=== PATIENT | female | born 1990 | race American Indian/Alaskan Native ===

== ENCOUNTER 2016-10-27 17:42 | Emergency (ER) | payer MEDICAID ==
[2016-10-27 17:52] VITALS: BP 129/84; PULSE 96; RESP 17; TEMP 98.8; O2SAT 98
--- NOTE | 2016-10-27 17:55 | ED PDOC ---
HPI: General Adult Time Seen by Provider: 10/27/16 17:55 Chief Complaint (Nursing): Female Genitourinary Chief Complaint (Provider): vaginal discomfort History Per: Patient Additional Complaint(s): 25-year-old female presents to emergency department for evaluation of vaginal discharge that started 3 days ago. Patient also noticed a possible abscess to right labia majora region 3 days ago. She states the abscess ruptured on its own and has been draining. Patient thinks there may be 2 abscesses to same area. Patient has pain to affected area but denies any fever or chills. Patient states she is currently sexually active with one partner and denies concern for STD. No associated nausea, vomiting, diarrhea or constipation, dysuria or hematuria. Past Medical History Reviewed: Historical Data, Nursing Documentation, Vital Signs Vital Signs: Last Vital Signs Temp 98.8 F 10/27/16 17:49 Pulse 96 H 10/27/16 17:49 Resp 17 10/27/16 17:49 BP 129/84 10/27/16 17:49 Pulse Ox 98 10/27/16 20:02 - Medical History PMH: No Chronic Diseases - Surgical History Surgical History: No Surg Hx - Family History Family History: States: No Known Family Hx - Living Arrangements Living Arrangements: With Family - Social History Current smoker - smoking cessation education provided: No Alcohol: None Drugs: Denies - Home Medications Home Medications: Ambulatory Orders Medication Instructions Recorded Fluconazole [Diflucan] 150 mg PO ONCE #1 tab 10/27/16 Metronidazole [Metrogel] 60 gm VAG HS #1 packet 10/27/16 Sulfamethoxazole/Trimethoprim 1 tab PO BID #20 tab 10/27/16 [Bactrim DS 800 mg-160 mg] - Allergies Allergies/Adverse Reactions: Allergies Allergy/AdvReac Type Severity Reaction Status Date / Time No Known Allergies Allergy Verified 10/27/16 17:48 Review of Systems ROS Statement: Except As Marked, All Systems Reviewed And Found Negative Constitutional: Negative for: Fever, Chills Gastrointestinal: Negative for: Nausea, Vomiting, Abdominal Pain Genitourinary Female: Positive for: Vaginal Discharge, Other (Possible abscess to external genitalia). Negative for: Dysuria, Frequency, Incontinence, Hematuria, Vaginal Bleeding Physical Exam - Reviewed Nursing Documentation Reviewed: Yes Vital Signs Reviewed: Yes - Physical Exam Appears: Positive for: Well, Non-toxic, No Acute Distress Skin: Negative for: Rash Eye Exam: Positive for: Normal appearance Cardiovascular/Chest: Positive for: Regular Rate, Rhythm Respiratory: Positive for: Normal Breath Sounds Gastrointestinal/Abdominal: Positive for: Soft. Negative for: Tenderness, Distended, Guarding, Rebound Pelvic Exam: Positive for: Other (superficial 2 cm abscess noted to the right groin region, additional superficial 2 cm abscess noted to the right external genitalia, abscesses or indurated with minimal fluctuance, no central pointing, minimal tenderness to palpation, slight surrounding swelling, there is copious amount of thick white discharge noted from closed cervical os, no CMT, no adnexal or uterine tenderness, no active bleeding or cervicitis) Back: Negative for: L CVA Tenderness, R CVA Tenderness Neurologic/Psych: Positive for: Alert, Oriented - Laboratory Results Urine POC: Negative Urine dip results: Positive for: Leukocyte Esterase (large). Negative for: Blood, Nitrate, Ketones, Glucose, Bilirubin, Protein - ECG O2 Sat by Pulse Oximetry: 98 Pulse Ox Interpretation: Normal Medical Decision Making Medical Decision Makin-year-old female with vaginal discomfort. Plan: Genital culture GC and chlamydia culture Urinalysis and urine culture Large leukocytes noted in urine, patient denies any dysuria or UTI symptoms, urine culture was sent. Prescription for Bactrim will be given secondary to abscess finding which will also cover UTI. Additional prescriptions for Diflucan and MetroGel given. Advised warm soaks with Epsom salts affected area. Patient was instructed to follow-up with sheet combining operator in 2-3 days. Disposition - Clinical Impression Clinical Impression: Abscess, Vaginal discharge, Vaginal candidiasis - Patient ED Disposition Is Patient to be Admitted: No Counseled Patient/Family Regarding: Studies Performed, Diagnosis, Need For Followup, Rx Given - Disposition [facility] Disposition: Routine/Home Disposition Time: 19:25 Condition: STABLE Additional Instructions: Apply warm soaks with Epsom salts to affected area or soak in sitz baths as often as possible. Take [id number] Tylenol or Advil for pain as needed. Take prescription meds as directed. Follow-up with sheet combining operator in 2-3 days. Prescriptions: Fluconazole [Diflucan] 150 mg PO ONCE #1 tab Metronidazole [Metrogel] 60 gm VAG HS #1 packet Sulfamethoxazole/Trimethoprim [Bactrim DS 800 mg-160 mg] 1 tab PO BID #20 tab Instructions: Vulvovaginal Candidiasis (ED), Abscess (ED), Vaginal Discharge ( ED) Results - Lab Results Lab Results: 10/27/16 19:00 Urine Color Yellow Urine Clarity Cloudy Urine pH 6.0 Ur Specific [place] 1.015 Urine Protein Negative Urine Glucose (UA) Neg Urine Ketones Negative Urine Blood Negative Urine Nitrate Negative Urine Bilirubin Negative Urine Urobilinogen 0.2-1.0 Ur Leukocyte Esterase Large Urine RBC (Auto) 12 H Urine Microscopic WBC 5 Ur Squamous Epith Cells 17 H
[2016-10-27 19:20] LABS: RBC URINE 12 /hpf (0-3); URINE BILIRUBIN NEGATIVE (NEGATIVE); URINE BLOOD NEGATIVE (NEGATIVE); URINE COLOR YELLOW (YELLOW); URINE GLUCOSE (UA) NEG (Normal); URINE KETONE NEGATIVE (NEGATIVE); URINE LEUKOCYTE ESTERASE LARGE Leu/uL (Negative); URINE PROTEIN NEGATIVE (NEGATIVE); URINE UROBILINOGEN 0.2-1.0 mg/dL (0.2-1.0); WBC URINE 5 /hpf (0-5)
== END 2016-10-27 19:36 | disposition home or self-care (01) ==
LOC: H.ER 17:42
DX: B37.3 Candidiasis of vulva and vagina (principal); N76.4 Abscess of vulva

== ENCOUNTER 2017-08-22 15:20 | Emergency (ER) | payer MEDICAID, OTHER ==
--- NOTE | 2017-08-22 16:20 | OBHP ---
Datetime: 08/22/2017 16:00 IP Adm Impression: Term, intrauterine ; No Active Labor; Intact Membranes IP Chief Complaint Other: felt and saw milky vaginal discharge today/no pain/+FM IP Admit Plan: Discharge home Admit Comment, IP Provider: IUP at 37w by pt dates (PNC Dr Per Pinedo undocumented) c/o milky disharge and feeling wet...No VB; +FM; No CTX PNC: Dr Cj Albarado - undocumented - no records avail...pt states no complicatoins ex anemia...next a ppt this monday PMH: anemia PSH: denies NKA POBGYNH: G1; no STD PSoH: no smoking ETOH drugs SSE: milky discharge ; fern neg A: IUP at 37w; no evidenece of ROM PLAN: will discharge home; obtain records; follow up this monday with PMD; labor instruct oins Extremities - PN: Normal Abdomen - PN: Normal HEENT - PN: Normal General - PN: Normal Presentation-Admit: Vertex IP Fetus A Comments: Sonogram caph - DENIS 12cm FHR - Baseline A Provider: 130 Membranes, Provider: Intact Contraction Comments Provider: occ Pool Provider: Negative Ferning Provider: Negative EGA AdmitDate IP: 37.4 IP Chief Complaint: Suspected ruptured membranes NICHD Variability Prov Fetus A: Moderate 6-25bpm NICHD Accel Fetus A IP Provider: [id number] FHR Category Provider Fetus A: Category I NICHD Decel Fetus A IP Provider: None Dilatation, Provider: 0
[2017-08-22 21:42] VITALS: BP 100/63; PULSE 75
== END 2017-08-22 16:31 | disposition home or self-care (01) ==
LOC: H.EROB2 15:20
DX: O47.1 False labor at or after 37 completed weeks of gestation (principal); Z3A.37 37 weeks gestation of pregnancy; O26.93 Pregnancy related conditions, unspecified, third trimester; N89.8 Other specified noninflammatory disorders of vagina